=== PATIENT | male | born 1985 | race African-American/Black ===

== ENCOUNTER 2016-11-07 14:17 | Emergency (ER) | payer MEDICAID ==
[~2016-11-07] VITALS: Ht 185.4 cm; Wt 71.7 kg
[2016-11-07 14:43] VITALS: BP 129/71
--- NOTE | 2016-11-07 14:47 | NUR ---
Patient ambulated to bed 06.
[2016-11-07] MEDS ORDERED: IBUPROFEN 600 MG TAB PO ONE (14:50)
[2016-11-07] MEDS ORDERED: ACETAMINOPHEN EXTRA STRENGTH 500 MG TAB PO ONE (14:50)
--- NOTE | 2016-11-07 14:50 | NUR ---
31/M PRESENT TO ER C/O FLU LIKE SYMPTOMS x 4 DAYS. PT STATES PT HAS BODYACHE & WHEN COUGHING PAIN L CHEST. DENIES N/V/D; SKIN IS PINK/WARM/DRY; AAOX4 WITH EVEN AND STEADY GAIT; LUNGS CLEAR BL; HR EVEN AND REGULAR; PATIENT STATES PAIN OF 10/10 AT THIS TIME; VSS; PATIENT POSITIONED FOR COMFORT; HOB ELEVATED; BEDRAILS UP X2; BED DOWN. ER MD MADE AWARE OF PT STATUS.
[2016-11-07] MEDS ORDERED: ALBUTEROL SULFATE/IPRATROPIU 3 ML SOL IH ONE (15:00)
[2016-11-07] MEDS ORDERED: PROMETH/CODEINE 6.25-10MG/5ML 5 ML UDC PO ONE (15:00)
--- NOTE | 2016-11-07 15:07 | NUR ---
RT at bedside to give patient breathing treatment.
[2016-11-07 16:00] VITALS: BP 120/64
--- NOTE | 2016-11-07 16:00 | NUR ---
Patient discharged with v/s stable. Written and verbal after care instructions given and explained. Patient alert, oriented and verbalized understanding of instructions. Ambulatory with steady gait. All questions addressed prior to discharge. ID band removed. Patient advised to follow up with PMD. Rx of PROMETH W/ CODEINE given. Patient educated on indication of medication including possible reaction and side effects. Opportunity to ask questions provided and answered.
== END 2016-11-07 16:00 | disposition home or self-care (01) ==
LOC: MED 14:17
DX: R05 Cough (principal); R09.89 Other specified symptoms and signs involving the circulatory and respiratory systems; R09.81 Nasal congestion; M79.1 Myalgia
CPT/HCPCS: 36415; 71020; 87804; 94640; 99285; J7620

== ENCOUNTER 2017-02-03 15:23 | Emergency (ER) | payer MEDICAID ==
[~2017-02-03] VITALS: Ht 185.4 cm; Wt 69.2 kg
[2017-02-03 15:43] VITALS: BP 109/67
--- NOTE | 2017-02-03 16:08 | NUR ---
Patient ambulated to bed 5. RN evaluating patient at bedside.
--- NOTE | 2017-02-03 16:15 | NUR ---
PATIENT PRESENTS TO ED REQUESTING MEDICATION REFILL DEPAKOTE 500MG PO BID & HS PROZAC 20MG PO AM SEROQUEL 200MG PO HS DENIES N/V/D; SKIN IS PINK/WARM/DRY; AAOX4 WITH EVEN AND STEADY GAIT; LUNGS CLEAR BL; HR EVEN AND REGULAR; PT DENIES ANY FEVER, CP, SOB, OR COUGH AT THIS TIME; PATIENT STATES PAIN OF 0/10 AT THIS TIME; VSS; PATIENT POSITIONED FOR COMFORT; HOB ELEVATED; BEDRAILS UP X2; BED DOWN. ER MD MADE AWARE OF PT STATUS.
[2017-02-03 17:17] VITALS: BP 119/64
--- NOTE | 2017-02-03 17:17 | NUR ---
Patient discharged with v/s stable. Written and verbal after care instructions given and explained. Patient alert, oriented and verbalized understanding of instructions. Ambulatory with steady gait. All questions addressed prior to discharge. ID band removed. Patient advised to follow up with PMD. Rx of DEPAKOTE, NORCO, PROZAC, SEROQUEL given. Patient educated on indication of medication including possible reaction and side effects. Opportunity to ask questions provided and answered.
== END 2017-02-03 17:17 | disposition home or self-care (01) ==
LOC: MED 15:23
DX: M54.5 Low back pain (principal); F17.200 Nicotine dependence, unspecified, uncomplicated; Z79.899 Other long term (current) drug therapy
CPT/HCPCS: 99283

== ENCOUNTER 2017-06-22 19:21 | Emergency (ER) | payer MEDICAID ==
[~2017-06-22] VITALS: Ht 188 cm; Wt 73.0 kg
[2017-06-22 19:39] VITALS: BP 138/67
--- NOTE | 2017-06-22 21:45 | NUR ---
PATIENT IS A 32 Y/O MALE WHO PRESENTS TO THE ED C/O BACK PAIN. PT STATES, "I WAS HELPING MY FRIENDS MOVE WHEN I FELL." PT REPORTS 10/10 SHARP BACK PAIN THAT DOES NOT RADIATE. PT DENIES CP, SOB, N/V/D. PT AAOX4, RR EVEN/UNLABORED, AMBULATED TO ER BED WITH STEADY GAIT. PT REPOSITIONED FOR COMFORT, BED IN LOWEST POSITION. ER MD DR. MOSQUEDA NOTIFIED. WILL CONTINUE TO MONITOR.
--- NOTE | 2017-06-22 22:29 | NUR ---
PATIENT D/C BY DR. MOSQUEDA.
[2017-06-22 22:30] VITALS: BP 127/72
--- NOTE | 2017-06-22 22:30 | NUR ---
Patient discharged with v/s stable. Written and verbal after care instructions given and explained. Patient alert, oriented and verbalized understanding of instructions. Ambulatory with steady gait. All questions addressed prior to discharge. ID band removed. Patient advised to follow up with PMD. Rx of NAPROSYN 500MG given. Patient educated on indication of medication including possible reaction and side effects. Opportunity to ask questions provided and answered.
== END 2017-06-22 22:30 | disposition home or self-care (01) ==
LOC: MED 19:21
DX: M25.511 Pain in right shoulder (principal)
CPT/HCPCS: 73030; 99284; Q0092

== ENCOUNTER 2017-10-03 13:54 | Emergency (ER) | payer MEDICAID ==
[~2017-10-03] VITALS: Ht 188 cm; Wt 71.2 kg
[2017-10-03 14:03] VITALS: BP 137/93
--- NOTE | 2017-10-03 14:07 | NUR ---
PT AMB TO [facility].
--- NOTE | 2017-10-03 14:08 | NUR ---
32/M BIB SELF WITH C/O LEFT 5TH TOE PAIN x ONE WEEK. PT DENIES INJURY OR TRAUMA.AAOX4 WITH EVEN AND STEADY GAIT; LUNGS CLEAR BL; HR EVEN AND REGULAR. PATIENT STATES PAIN OF 10/10 AT THIS TIME.
--- NOTE | 2017-10-03 14:22 | NUR ---
Patient being evaluated by DR DUMONT at bedside.
--- NOTE | 2017-10-03 14:47 | NUR ---
PT TAKEN TO [facility] VIA W/C.
--- NOTE | 2017-10-03 14:59 | NUR ---
PT RETURNED FROM [facility].
[2017-10-03] MEDS ORDERED: KETOROLAC 60 MG/2 ML VIAL IM ONE (15:25)
--- NOTE | 2017-10-03 15:39 | NUR ---
Patient being reevaluated by DR DUMONT at bedside.
[2017-10-03 16:13] VITALS: BP 131/73
== END 2017-10-03 16:13 | disposition home or self-care (01) ==
LOC: MED 13:54
DX: M79.675 Pain in left toe(s) (principal)
CPT/HCPCS: 73660; 96372; 99284; J1885

== ENCOUNTER 2018-01-08 22:27 | Emergency (ER) | payer MEDICAID ==
[~2018-01-08] VITALS: Ht 185.4 cm; Wt 72.2 kg
[2018-01-08 22:35] VITALS: BP 133/80
--- NOTE | 2018-01-08 22:55 | NUR ---
PT PUT IN BED 8
--- NOTE | 2018-01-08 22:55 | NUR ---
PT CAME IN TO ER WITH C/O PAIN TO THE RIGHT ABDOMEN UNDER THE RIB CAGE WITH RADIATING PAIN TO THE BACK. BOWL SOUNDS ARE ACTIVE IN ALL 4 Q. NKA. PT STATED HE HAD INTESTINAL SURGERY WHEN HE WAS A CHILD. PT HAS BEEN TAKING MOTRIN FOR PAIN BUT DOES NOT HAVE ANY RELIEF. DENIES N/V/D; SKIN IS PINK/WARM/DRY; AAOX4 WITH EVEN AND STEADY GAIT; LUNGS CLEAR BL; HR EVEN AND REGULAR; PT DENIES ANY FEVER, CP, SOB, OR COUGH AT THIS TIME; PATIENT STATES PAIN OF 10/10 AT THIS TIME; VSS; PATIENT POSITIONED FOR COMFORT; HOB ELEVATED; BEDRAILS UP X2; BED DOWN. ER MD MADE AWARE OF PT STATUS.
--- NOTE | 2018-01-08 22:56 | NUR ---
IN WITH PT
[2018-01-08] MEDS ORDERED: NACL 0.9% 500 ML IV ONE (23:08)
[2018-01-08] MEDS ORDERED: KETOROLAC 30 MG/ML VIAL IVP ONE (23:10)
[2018-01-08 23:29] LABS: BASOPHILS # (AUTO) 0.1 K/uL (0.00-0.22); BASOPHILS % (AUTO) 1.9 % (0.0-2.0); EOSINOPHILS # (AUTO) 0.1 K/uL (0-0.4); EOSINOPHILS % (AUTO) 1.9 % (0.0-4.0); HEMATOCRIT 40.6 % (36-52); HEMOGLOBIN 13.6 g/dL (12.0-18.0); LYMPHOCYTES # (AUTO) 1.3 K/uL (2.0-11.5); LYMPHOCYTES % (AUTO) 32.2 % (20.5-51.1); MEAN CORPUSCULAR HEMOGLOBIN 39 pg (27-31); MEAN CORPUSCULAR HGB CONC 34 g/dL (33-37); MEAN CORPUSCULAR VOLUME 114.7 fL (80-94); MONOCYTES # (AUTO) 0.2 K/uL (0.8-1.0); MONOCYTES % (AUTO) 5.7 % (1.7-9.3); NEUTROPHILS # (AUTO) 2.4 K/uL (1.8-7.7); NEUTROPHILS % (AUTO) 58.3 % (42.2-75.2); PLATELET COUNT (AUTO) 259 K/uL (140-450); RED BLOOD CELL COUNT(AUTO) 3.54 MIL/uL (4.20-6.10); RED CELL DISTRIBUTION WIDTH 13.6 % (11.6-13.7); WHITE BLOOD COUNT (AUTO) 4.2 K/uL (4.8-10.8)
--- NOTE | 2018-01-08 23:30 | NUR ---
pt refused medication and iv fluids. pt states he does not want to get poked by a needle. pt asked for po medication for pain.
[2018-01-08 23:36] LABS: ANION GAP 9.9 (8-16); CARBON DIOXIDE 31.7 mmol/L (21-32); POTASSIUM 3.6 mmol/L (3.5-5.1)
--- NOTE | 2018-01-08 23:38 | NUR ---
ct took pt
[2018-01-08 23:42] LABS: ALBUMIN 3.6 g/dL (3.4-5.0); TOTAL BILIRUBIN 0.3 mg/dL (0.0-1.0)
[2018-01-08] MEDS ORDERED: IBUPROFEN 800 MG TAB PO ONE (23:45)
--- NOTE | 2018-01-08 23:50 | NUR ---
pt back from ct.
--- NOTE | 2018-01-09 00:07 | NUR ---
gave report to ousmane. 30 minute lunch break. pt vitals are stable, a/o x 4.
[2018-01-09 02:20] VITALS: BP 124/68
--- NOTE | 2018-01-09 02:23 | NUR ---
Patient discharged with v/s stable. Written and verbal after care instructions given and explained. Patient alert, oriented and verbalized understanding of instructions. Ambulatory with steady gait. All questions addressed prior to discharge. ID band removed. Patient advised to follow up with PMD. Rx of tramadol, MiraLax, and Mineral Oil given. Patient educated on indication of medication including possible reaction and side effects. Opportunity to ask questions provided and answered.
== END 2018-01-09 02:23 | disposition home or self-care (01) ==
LOC: MED 22:27
DX: K59.00 Constipation, unspecified (principal)
CPT/HCPCS: 36415; 80053; 85025; 99285; J1885

== ENCOUNTER 2018-07-15 07:49 | Emergency (ER) | payer MEDICAID ==
[~2018-07-15] VITALS: Ht 185.4 cm; Wt 78.0 kg
[2018-07-15 07:55] VITALS: BP 119/72
[2018-07-15] MEDS: traMADol 50 MG TAB PO ONE (09:09)
[2018-07-15] MEDS: CLINDAMYCIN 150 MG CAP PO ONE (09:09)
[2018-07-15 10:42] VITALS: BP 131/75
== END 2018-07-15 10:42 | disposition home or self-care (01) ==
LOC: MED 07:49
DX: S23.9XXA Sprain of unspecified parts of thorax, initial encounter (principal); S63.501A Unspecified sprain of right wrist, initial encounter; S13.4XXA Sprain of ligaments of cervical spine, initial encounter; S00.532A Contusion of oral cavity, initial encounter; R68.84 Jaw pain; K08.89 Other specified disorders of teeth and supporting structures; R55 Syncope and collapse; V43.62XA Car passenger injured in collision with other type car in traffic accident, initial encounter; Y93.89 Activity, other specified; Y92.89 Other specified places as the place of occurrence of the external cause; Y99.8 Other external cause status
CPT/HCPCS: 70486; 71250; 72125; 73110; 90471; 90715; 99284

== ENCOUNTER 2018-12-05 08:15 | Emergency (ER) | payer MEDICAID ==
[~2018-12-05] VITALS: Ht 154.9 cm; Wt 71.8 kg
[2018-12-05 08:22] VITALS: BP 111/46
[2018-12-05 08:28] VITALS: BP 111/46
--- NOTE | 2018-12-05 08:28 | NUR ---
PATIENT AMBULATED TO BED 11
--- NOTE | 2018-12-05 08:28 | NUR ---
BIB GIRLFRIEND. AAO X4 C/O LT ANKLE AND LT WRIST PAIN X2 DAYS. PT REPORTS HE WOKE UP WITH PAIN, DENIES TRAUMA. PT REPORTS SHARP PAIN 10/10 IN ANKLE THAT RADIATES UP LEG, AND SHARP PAIN IN WRIST THAT INCREASES WITH MOVEMENT. L ANKLE TENDER TO TOUCH. PT STATES TAKING TYLENOL LAST NIGHT WITH NO RELIEF. +CMS TO L ANKLE AND L WRIST. EQUAL KENN STRENGTH TO UPPER AND LOWER EXTREMITIES. PT AMBULATED WITH STEADY GAIT. ER TO EVALUATE PT.
--- NOTE | 2018-12-05 08:40 | NUR ---
DR SANCHEZ AT BEDSIDE FOR PT EVAL
--- NOTE | 2018-12-05 08:44 | NUR ---
X-RAY AT BEDSIDE
[2018-12-05] MEDS ORDERED: KETOROLAC 60 MG/2 ML VIAL IM ONE (08:55)
--- NOTE | 2018-12-05 09:01 | NUR ---
IM MEDICATION GIVEN ORDERED. PT TOLERATED WELL.
--- NOTE | 2018-12-05 09:27 | NUR ---
PT REFUSED CRUTCHES. AND RN MADE AWARE.
--- NOTE | 2018-12-05 09:30 | NUR ---
PT LT FOOT DISTAL TO WRAP +CMS, PT LT HAND DISTAL TO LT WRAP +CMS
== END 2018-12-05 09:31 | disposition home or self-care (01) ==
LOC: MED 08:15
DX: S93.402A Sprain of unspecified ligament of left ankle, initial encounter (principal); S63.502A Unspecified sprain of left wrist, initial encounter; X58.XXXA Exposure to other specified factors, initial encounter; Y93.89 Activity, other specified; Y92.89 Other specified places as the place of occurrence of the external cause; Y99.8 Other external cause status
CPT/HCPCS: 29125; 73110; 73610; 96372; 99283; J1885

== ENCOUNTER 2019-01-09 08:29 | Emergency (ER) | payer MEDICAID ==
[~2019-01-09] VITALS: Ht 185.4 cm; Wt 67.1 kg
[2019-01-09 08:34] VITALS: BP 124/51
--- NOTE | 2019-01-09 08:34 | NUR ---
PT AMB TO BED 11 WITH STEADY GAIT. TRIAGE COMPLETED BEDSIDE
--- NOTE | 2019-01-09 08:45 | NUR ---
33 Y MALE BIB GIRLFRIEND C/O WOUND TO PTS L 2ND TOE AFTER USING [employer] YESTERDAY AM. NO BLEEDING AT THIS TIME. NO LACERATION NOTED. SITE IS RED. PTS REPORTS USING TYLENOL YESTERDAY, SOME RELIEF. PAIN 3/10 PMH- DENIES
--- NOTE | 2019-01-09 09:10 | NUR ---
DR DANG AT BEDSIDE
[2019-01-09] MEDS ORDERED: KETOROLAC 60 MG/2 ML VIAL IM ONE (09:15)
--- NOTE | 2019-01-09 10:17 | NUR ---
TORADOL AND TDAP VACCINE GIVEN. PT SIGNED CONSENT FOR TDAP.
[2019-01-09 10:39] VITALS: BP 122/62
--- NOTE | 2019-01-09 10:39 | NUR ---
Patient discharged with v/s stable. Written and verbal after care instructions given and explained. Patient alert, oriented and verbalized understanding of instructions. Ambulatory with steady gait. All questions addressed prior to discharge. ID band removed. Patient advised to follow up with PMD. Rx of Motrin and [place] given. Patient educated on indication of medication including possible reaction and side effects. Opportunity to ask questions provided and answered.
== END 2019-01-09 10:39 | disposition home or self-care (01) ==
LOC: MED 08:29
DX: S90.222A Contusion of left lesser toe(s) with damage to nail, initial encounter (principal); F17.200 Nicotine dependence, unspecified, uncomplicated; W22.8XXA Striking against or struck by other objects, initial encounter; Y93.89 Activity, other specified; Y92.89 Other specified places as the place of occurrence of the external cause; Y99.8 Other external cause status
CPT/HCPCS: 90471; 90715; 96372; 99283; J1885

== ENCOUNTER 2022-08-04 18:30 | Emergency (ER) | payer MEDICAID ==
[~2022-08-04] VITALS: Ht 185.4 cm; Wt 68.0 kg
[2022-08-04 19:02] VITALS: BP 118/49
--- NOTE | 2022-08-04 21:31 | NUR ---
PT AMBUALTED TO BED #2
--- NOTE | 2022-08-04 22:00 | NUR ---
PT IS HERE TO GET EVALUATION OF IS PAIN IN THE LEFT FOOT. ROOM AIR AND AMBULATORY
[2022-08-04] MEDS ORDERED: HYDR-5080 PO (22:02)
[2022-08-04] MEDS ORDERED: HYDROcodone/APAP 5/325 MG 1 TAB TAB PO ONE (22:05)
[2022-08-04 23:46] VITALS: BP 118/49
--- NOTE | 2022-08-04 23:47 | NUR ---
Patient discharged with v/s stable. Written and verbal after care instructions given and explained. Patient verbalized understanding. Ambulatory with steady gait. All questions addressed prior to discharge. Advised to follow up with PMDPT LEFT WTH HIS BELOGINGS
== END 2022-08-04 23:46 | disposition home or self-care (01) ==
LOC: MED 18:30
DX: S92.912A Unspecified fracture of left toe(s), initial encounter for closed fracture (principal); F17.210 Nicotine dependence, cigarettes, uncomplicated; Z79.899 Other long term (current) drug therapy; X58.XXXA Exposure to other specified factors, initial encounter; Y93.89 Activity, other specified; Y92.89 Other specified places as the place of occurrence of the external cause; Y99.8 Other external cause status
CPT/HCPCS: 73630; 99283

== ENCOUNTER 2023-06-26 20:26 | Emergency (ER) | payer MEDICAID ==
[~2023-06-26] VITALS: Ht 188 cm; Wt 4.5 kg
[~2023-06-26 20:26] MED LIST: HYDR-5080 PO
[2023-06-26 20:34] VITALS: BP 106/74; PULSE 85; RESP 16; TEMP 97.9; O2SAT 98
[2023-06-26 21:00] VITALS: O2SAT 98
[2023-06-26 22:15] LABS: FLU B ANTIGEN NEGATIVE (NEGATIVE)
[2023-06-26 22:16] LABS: FLU A ANTIGEN POSITIVE (NEGATIVE)
[2023-06-26] MEDS ORDERED: TAM75 PO (22:43)
[2023-06-26] MEDS ORDERED: ROBAC PO (22:43)
[2023-06-26] MEDS ORDERED: BACI-418 TP (22:43)
[2023-06-26] MEDS ORDERED: NAPR-54 PO (22:43)
== END 2023-06-26 22:51 | disposition home or self-care (01) ==
LOC: MED 20:26
DX: J10.1 Influenza due to other identified influenza virus with other respiratory manifestations (principal); Z20.822 Contact with and (suspected) exposure to COVID-19; Z79.899 Other long term (current) drug therapy
CPT/HCPCS: 71045; 93005; 99285

== ENCOUNTER 2023-08-07 09:12 | Emergency (ER) | payer MEDICAID, OTHER ==
[~2023-08-07] VITALS: Ht 182.9 cm; Wt 66.7 kg
[~2023-08-07 09:12] MED LIST changes: +BACI-418 TP; +NAPR-54 PO; +ROBAC PO; +TAM75 PO
[2023-08-07 09:23] VITALS: BP 125/47; PULSE 66; RESP 16; TEMP 98.7; O2SAT 100
[2023-08-07 10:20] VITALS: O2SAT 100
[2023-08-07 10:30] LABS: FLU A ANTIGEN negative (NEGATIVE); FLU B ANTIGEN NEGATIVE (NEGATIVE)
[2023-08-07] MEDS: KETOROLAC 30 MG/ML VIAL IM ONE (10:36)
[2023-08-07] MEDS: ACETAMINOPHEN 325 MG TAB PO ONE (10:37)
[2023-08-07] MEDS ORDERED: BENZ100C6 PO (10:43)
[2023-08-07] MEDS ORDERED: IBUP-2213 PO (10:43)
[2023-08-07] MEDS ORDERED: ALBU0.0912 IH (10:43)
[2023-08-07] MEDS ORDERED: NIRM1TAB9 PO (10:43)
== END 2023-08-07 11:01 | disposition home or self-care (01) ==
LOC: MED 09:12
DX: U07.1 COVID-19 (principal); Z79.899 Other long term (current) drug therapy
CPT/HCPCS: 71045; 87426; 87804; 93005; 96372; 99285; J1885